=== PATIENT | female | born 1975 | race Caucasian/White ===

== ENCOUNTER → 2018-01-29 | Outpatient (CLI) | payer BC | LOC: FIMAGING 14:17 | PROVIDERS: ATTEND Physician Assistant Medical | DX: R56.9 Unspecified convulsions (principal); J32.8 Other chronic sinusitis ==

== ENCOUNTER → 2018-02-12 | Outpatient (CLI) | payer BC ==
--- NOTE | 2018-02-16 14:08 | CPEEG ---
FOUR-HOUR VIDEO EEG DATE OF STUDY: 02/12/2018 INTERPRETATION: This 4-hour video EEG recording is essentially normal. There were no potentially ep ileptogenic abnormalities present during the awake or sleep recordings. During the video EEG monitor ing session, the patient did not have any clinical events. REPORT: This 4-hour video EEG contains 10 Hz alpha activity over the posterior head regions. There was no abnormal activation at rest, during photic stimulation or hyperventilation. The patient becam e drowsy and fell into sustained sleep during the study. During sleep, there was minimal asymmetry w ith increased amplitude of sleep activity over the right posterior head region. This can be a normal variant. There was no definite abnormal activation during drowsiness, sleep, or during times of connie usal. The patient did not have any clinical events during the video EEG monitoring session. /[id number]/MODL
== END ==
LOC: FCPNEURO 07:59
PROVIDERS: ATTEND Physician Assistant Medical
DX: R56.9 Unspecified convulsions (principal)